=== PATIENT | female | born 1950 | race Caucasian/White ===

== ENCOUNTER → 2025-01-13 09:23 | Outpatient (REF) | payer OTHER, SELFPAY | LOC: RAD 09:23 | PROVIDERS: ATTENDING PHYSICIAN Internal Medicine Cardiovascular Disease; FAMILY PHYSICIAN Internal Medicine | DX: R94.39 Abnormal result of other cardiovascular function study (principal) | CPT/HCPCS: 75574; Q9967 ==

== ENCOUNTER 2025-04-23 05:53 | Day surgery (SDC) | payer OTHER, SELFPAY ==
[2025-03-30 12:50] VITALS: BMI 45.1
[2025-03-30 13:11] LABS: Hematocrit 39.4 % (37.0-47.0); Hemoglobin 13.3 g/dL (12.0-16.0); Mean Corp Hgb Conc. 33.8 g/dL (33.0-37.0); Mean Corpuscular Volume 86.0 fL (81.0-99.0); Nucleated Red Blood Cells % 0 %; Platelet Count 357 10^3/uL (130-400); Red Cell Dist. Width 13.1 % (11.5-14.5)
[2025-03-30 13:14] LABS: INR 1.19; PT 15.4 Sec (11.4-14.6)
[2025-03-30 13:37] LABS: ALT (SGPT) 20 U/L (0-35); AST (SGOT) 24 U/L (14-36); Albumin 4.2 g/dl (3.5-5.0); Alkaline Phosphatase 71 U/L (38-126); Blood Urea Nitrogen 16 mg/dl (7-17); Calcium 9.8 mg/dl (8.4-10.2); Carbon Dioxide 26 mmol/L (22-30); Chloride 105 mmol/L (98-107); Estimated Creatinine Clearance 99 ml/min; Glucose 99 mg/dl (70-99); Magnesium 1.8 mg/dl (1.6-2.3); Potassium 3.4 mmol/L (3.5-5.1); Sodium 137 mmol/L (135-145); Total Protein 7.1 g/dl (6.3-8.2); eGFR > 60.00
[2025-04-23] VITALS (13 sets, daily range): BP systolic 86–121; BP diastolic 38–79
[2025-04-23 08:28] LABS: ACT-LR - POC 229 Seconds (116-155)
[2025-04-23 08:44] LABS: ACT-LR - POC 263 Seconds (116-155)
--- NOTE | 2025-04-23 08:59 | ITS.CL.ABL ---
Ob/Gyn Doctor - Ablation
Ablation
Procedure Report:
ELECTROPHYSIOLOGY ABLATION STUDY
DATE:: April 23, 2025�����������������������������REFERRING: Dr. Per Mata
INDICATION: Paroxysmal supraventricular tachycardia in the form of atrial fibrillation.
HISTORY: See H and P.��As above
ANTIARRHYTHMIC DRUG: Multaq
PRE-PROCEDURE PALLAVI: No intracardiac thrombus
PRESENTING RHYTHM: Sinus rhythm and also had spontaneous left atrial posterior wall flutter cycle length 340 ms during procedure which terminated with ablation
'TIME-OUT':��called and confirmed.
SEDATION/ANESTHESIA:��provided via the anesthesia department using general anesthesia (LMA).
INTRAVENOUS/ARTERIAL ACCESS:
Right femoral venous -8Fr
Left femoral venous - 8 Fr, 6 Fr
Left femoral arterial - 5 Fr
Ultrasound guidance for bilateral femoral vein access was utilized by me to obtain access with demonstration of normal anatomy
CHADS-VASC Score:
HAS-Bled Score
PROCEDURE:
1.��A decapolar CS catheter was placed within the CS for mapping and pacing.��This was also used as the reference catheter for the 3-D map. The patient spontaneously went into atypical atrial flutter cycle length 340 ms after transseptal puncture.
We performed entrainment maneuvers from the right atrium and the SVC and the lateral pearl terminalis which was 80 ms PPI greater than tachycardia cycle length. The proximal and mid coronary sinus was 40 ms PPI greater than tachycardia cycle
length. The mitral isthmus endocardially was 60 ms PPI greater than tachycardia cycle length with mid diastolic signals from the posterior wall and tachycardia slowed and terminated with a posterior wall box lesion set. Tachycardia slowed to 380
ms prior to termination with ablation in the posterior wall. In addition to the box lesion set with a roofline floor line and connecting lines in the posterior wall outside the left and right veins we performed PVI as below and extrapulmonary vein
substrate modification of the base of left atrial appendage and the interatrial fossa.
2. The intracardiac ultrasound catheter was positioned in the RA to identify the FO for targeting of transseptal puncture, assist��in identification of the pulmonary vein ostia, monitoring pre and post ablation pulmonary vein flow velocities,
monitoring for 'bubble' formation during RF application as a sign of thermal injury,��and to monitor for pericardial effusion during mapping and ablation procedure.���Left atrial size, LV ejection fraction, and pulmonary vein flows were monitored
pre and post ablation procedure. The other valves were inspected and found to be free of significant regurgitation or stenosis.
3.��Half of the calculated heparin bolus was administered prior to the first transeptal puncture.��Transseptal puncture was performed to diagnose RA and LA pressure so that safety of LA mapping and ablation could be further assessed, and to access
the left atrium and pulmonary veins for mapping and ablation.��This entailed advancing an 10 [place] steerable, sheath with dilator into the superior vena cava and withdrawing both (monitoring intracardiac ultrasound, fluoroscopy and tip pressure)
with the tip oriented toward the atrial septum.��The fossa ovalis was engaged (indicated by sudden displacement of the sheath tip as well as tenting of the fossa seen on intracardiac ultrasound).��Left atrial access required a pass with the
[place] needle extended.��Left atrial catheter position was confirmed by pressure monitoring (RA mean pressure 2 mm Hg and LA mean presure 7�8 mm Hg we answered this with IV hydration up to 750 cc of normal saline) which was unchanged
throughout procedure, LA saturation (99%),��as well as fluoroscopy.��This procedure was repeated for the Agilis sheath.��The remainder of the calculated heparin bolus was administered and heparin was
infused to maintain ACT at 300 -350 seconds throughout the case.
4.��RA pacing was performed via the proximal decapolar poles and LA pacing was performed via the distal decapolr poles.
5. A quadrapolar catheter was first positioned at the His position for His Bundle recording which was tagged via the 3-D Navex sytem, and then passed to the RVA for RV pacing and recording.
6. The 9 mm lattice was placed in each of the LIPV, LSPV, RSPV and the RIPV.��
7.��Next, a 3-D map was created using Navex.���A 3-D reconstructed CT image was compared to the 3-D Navex map to assist in anatomic interpretation, mapping and ablation.��The CT image and the NavX image were fused.
8. The 9 mm lattice catheter was utilized for [place] ablation about the left and right veins rendering entrance and exit block in all 4 pulmonary veins. Additional substrate was modified on the left atrial appendage side of the ligament of
[place] from roof down to the base of left atrial appendage. Additional extrapulmonary and substrate was modified at the roof and interatrial fossa outside the right veins. The posterior wall box lesion set rendered the posterior wall roof and
floor electrically isolated and also addressed the patient's posterior wall left atrial flutter 340 ms with slowing and termination. After this the patient was noninducible for other tachyarrhythmias and sheath and catheters removed from the left
atrium.
9. The patient was noninducible for any other tachyarrhythmia.
TOTAL FLOURO TIME: 12.1 minutes 123 mGy
TOTAL RF DURATION: 0 minutes
REVERSAL OF HEPARIN: 35 mg of protamine, slow IV administration
COMPLICATIONS:
None
Intracardiac US shows no pericardial effusion post ablation.
SUMMARY:��
Complex left atrial mapping and ablation.
PVI of all 4 pulmonary veins. Extrapulmonary vein substrate at the base of left atrial appendage and interatrial fossa. Targeting of atypical left atrial posterior wall flutter which was addressed with posterior wall isolation.
RECOMMENDATIONS:
1. Ambulate in 4 hours
2. Resume anticoagulation
3.��Consider discontinuation of Multaq
4.��Consider same-day discharge
Copy to: Dr. Per Mata
[2025-04-23] MEDS: ANESTHETIC LOZENGE 1 LOZENGE PO (13:17)
--- NOTE | 2025-04-23 15:44 | W.PN.UPDATE ---
Update Note
Progress Note Update
74 yo WF s/p PVI (Same day). She denies cp, sob, damion diet, voiding, EKG SR 1deg AVB, b/l groins c/d/i no HT, soft. She will resume Eliquis tonight and stop Multaq. Activity restrictions reviewed. She will f/u Dr. Mata in 1 mo. She is for d/c home
after 2pm.
== END 2025-04-23 14:04 | disposition home or self-care (01) ==
LOC: CATH 05:53
PROVIDERS: ATTENDING PHYSICIAN Internal Medicine Cardiovascular Disease; FAMILY PHYSICIAN Internal Medicine; OTHER PHYSICIAN Internal Medicine Cardiovascular Disease
DX: I48.0 Paroxysmal atrial fibrillation (principal); I47.10 Supraventricular tachycardia, unspecified; E03.9 Hypothyroidism, unspecified; E66.01 Morbid (severe) obesity due to excess calories; E78.5 Hyperlipidemia, unspecified; F32.A Depression, unspecified; F41.9 Anxiety disorder, unspecified; G47.33 Obstructive sleep apnea (adult) (pediatric); I10 Essential (primary) hypertension; I44.0 Atrioventricular block, first degree; I49.8 Other specified cardiac arrhythmias; J44.9 Chronic obstructive pulmonary disease, unspecified; M19.90 Unspecified osteoarthritis, unspecified site; Z68.42 Body mass index [BMI] 45.0-49.9, adult; Z87.891 Personal history of nicotine dependence; Z79.01 Long term (current) use of anticoagulants; Z79.1 Long term (current) use of non-steroidal anti-inflammatories (NSAID); Z79.890 Hormone replacement therapy; Z79.899 Other long term (current) drug therapy; Z90.710 Acquired absence of both cervix and uterus
CPT/HCPCS: C1730; C1733; C1766; C1892; C1759; 36415; 75572; 80053; 83735; 85025; 85347; 85610; 86850; 86900; 86901; 93005; 93655; 93656; C1894; Q9967